=== PATIENT | female | born 1980 | race Caucasian/White ===

== ENCOUNTER → 2024-12-26 11:21 | Outpatient (CLI) | payer OTHER, SELFPAY ==
[2024-12-26 12:42] LABS: Add Manual Diff / Slide Review NO; Basophils Absolute Auto 0 /uL (0-100); Basophils Percent Auto 0.5 % (0-2); Eosinophils Absolute Auto 100 /uL (0-450); Hematocrit 43.1 % (36-46); Hemoglobin 14.6 g/dL (12.0-16.0); Lymphocytes Absolute Auto 900 /uL (1100-4500); Lymphocytes Percent Auto 14.4 % (25-40); Mean Corpuscular HGB Conc 33.9 % (30-36); Mean Corpuscular Hemoglobin 33.5 PG (26-34); Monocytes Absolute Auto 300 /uL (0-900); Monocytes Percent Auto 5.2 % (3-14); Neutrophils Absolute Auto 5100 /uL (1500-7000); Neutrophils Percent Auto 78.9 % (50-75); Platelet Count 238 X10^3/uL (150-400); Red Blood Cell Count 4.35 X10^6/uL (4.0-5.2); Red Cell Distribution Width 12.8 % (11.6-14.8); White Blood Cell Count 6.5 X10^3/uL (4.5-11.0)
[2024-12-26 12:59] LABS: HEMOLYSIS < 15 (0-50); Iron 72 ug/dL (37-170)
[2024-12-26 13:11] LABS: Percent Iron Saturation 24 % (15-50); Total Iron Binding Capacity 301 ug/dL (265-497); Transferrin 250 mg/dL (206-381)
[2024-12-26 13:15] LABS: Alanine Aminotransferase 29 IU/L (<35); Albumin 4.5 g/dL (3.5-5.0); Albumin Globulin Ratio 1.9 (1.0-2.8); Alkaline Phosphatase 51 U/L (38-126); Aspartate Aminotransferase 31 IU/L (14-36); BUN Creatinine Ratio 14.6 (6-22); Bilirubin Total 0.4 mg/dL (0.2-1.3); Blood Urea Nitrogen 12 mg/dL (7-17); Calcium 9.2 mg/dL (8.4-10.2); Carbon Dioxide 21 mmol/L (22-32); Chloride 107 mmol/L (98-107); Cholesterol 175 mg/dL (140-199); Estimated Glomerular Filt Rate > 60 mL/min (>60); Globulin 2.4 g/dL (1.7-4.1); Glucose 107 mg/dL (70-100); HDL Cholesterol 101 mg/dL (40-60); HEMOLYSIS < 15 (0-50); LDL Cholesterol Calculated 66 mg/dL (<100); Potassium 4.6 mmol/L (3.4-5.1); Sodium 137 mmol/L (137-145); Total Protein 6.9 g/dL (6.3-8.2); Triglycerides 40 mg/dL (35-150)
[2024-12-26 13:31] LABS: TSH w/ Reflex to FT4 0.54 uIU/mL (0.47-4.68)
[2024-12-26 13:49] LABS: Ferritin 25 ng/mL (6-137)
[2024-12-30 12:36] LABS: ANA Screen, IFA Negative (.)
== END ==
PROVIDERS: PCP Family Medicine; Referring Provider Family Medicine; Visit Provider Family Medicine
DX: R53.83 Other fatigue (principal); R68.89 Other general symptoms and signs; T78.40XA Allergy, unspecified, initial encounter; R63.5 Abnormal weight gain; Z13.6 Encounter for screening for cardiovascular disorders
CPT/HCPCS: 36415; 80053; 80061; 82728; 83540; 83550; 84443; 85025; 86038

== ENCOUNTER → 2025-04-24 11:16 | Outpatient (CLI) | payer OTHER, SELFPAY ==
[2025-04-24 12:19] LABS: Add Manual Diff / Slide Review NO; Hematocrit 39.7 % (36-46); Hemoglobin 13.7 g/dL (12.0-16.0); Lymphocytes Absolute Auto 1100 /uL (1100-4500); Mean Corpuscular HGB Conc 34.7 % (30-36); Mean Corpuscular Hemoglobin 34.1 PG (26-34); Mean Corpuscular Volume 98.5 fL (80-100); Platelet Count 246 X10^3/uL (150-400)
[2025-04-24 12:51] LABS: HEMOLYSIS < 15 (0-50); Iron 67 ug/dL (37-170)
[2025-04-24 13:02] LABS: Percent Iron Saturation 23 % (15-50); Total Iron Binding Capacity 295 ug/dL (265-497); Transferrin 248 mg/dL (206-381)
[2025-04-24 13:21] LABS: Ferritin 28 ng/mL (6-137)
[2025-04-24 13:55] LABS: Folate 3.7 ng/mL (2.76-20.0); Vitamin B12 561 pg/mL (239-931)
== END ==
LOC: LAB 11:17
PROVIDERS: PCP Family Medicine; Referring Provider Family Medicine; Visit Provider Family Medicine
DX: F90.9 Attention-deficit hyperactivity disorder, unspecified type (principal); N92.0 Excessive and frequent menstruation with regular cycle; N94.6 Dysmenorrhea, unspecified; R63.5 Abnormal weight gain; R53.83 Other fatigue; R68.89 Other general symptoms and signs
CPT/HCPCS: 36415; 82607; 82728; 82746; 83540; 83550; 85025

== ENCOUNTER → 2025-05-08 08:08 | Outpatient (CLI) | payer OTHER, SELFPAY ==
--- NOTE | 2025-05-08 08:08 | DI.ECHO.S_ITS ---
[place] [facility] : : [address] : : [place] : : [id number] : : Phone: [phone] Echocardiogram Report + + :Name: CANDACE NEGRON Study Date: 05/08/2025 Height: 63 in : :[facility] ReadingLocation: Weight: 155 lb : : Gender: Female BSA: 1.7 m2 : :: 1980 Age: 44 yrs BP: 127/104 mmHg: :Reason For Study: CHEST DISCOMFORT : :Ordering Physician: LISA, : :JOSUÉ Hartman Performed By: Jeff Martinez : :Referring: JOSUÉ GONZALEZ : + + Interpretation Summary Normal biventricular size and systolic function. LVEF is 60 to 65%. Normal atrial sizes. No significant valvular pathology is noted. Ascending aorta measures normal size. RA pressure at 3 mmHg. Other findings as below. Procedure: A two-dimensional transthoracic echocardiogram with color flow and Doppler was performed. The study quality was technically good. There is no prior echocardiogram noted for this patient. The patient was in normal sinus rhythm during the exam. Left Ventricle: The left ventricle is normal in size. There is normal left ventricular wall thickness. There is no ventricular septal defect visualized. The ejection fraction is estimated to be 60-65%. There are no focal wall motion abnormalities. Diastolic parameters suggest probable normal left ventricular diastolic function and normal filling pressures. Right Ventricle: The right ventricle is normal in size and function. Atria: The left atrial size is normal. Right atrial size is normal. There is no Doppler evidence for an interatrial shunt. Mitral Valve: The mitral valve leaflets appear normal. There is no evidence of stenosis, fluttering, or prolapse. There is trace mitral regurgitation. Aortic Valve: The aortic valve is trileaflet. The aortic valve opens well. There is trace aortic regurgitation. Tricuspid Valve: The tricuspid valve leaflets are thin and pliable. No tricuspid regurgitation. Pulmonic Valve: The pulmonic valve leaflets are thin and pliable; valve motion is normal. There is no pulmonic valvular regurgitation. Great Vessels: The aortic root is normal size. The dimensions of the ascending aorta are normal. The pulmonary artery is normal size. The IVC is of normal diameter and collapses greater than 50% with a sniff. This suggests a low right atrial pressure of 3 mm Hg. Pericardium/ Pleura There is no pericardial effusion. There is no pleural effusion. MMode/2D Measurements & Calculations LVIDd: 4.4 cm LVOT diam: 1.8 cm LVIDs: 2.9 cm Ao root diam: 2.7 cm FS: 35.2 % asc Aorta Diam: 2.8 cm EPSS: 0.41 cm Ao Arch Diam (Prox Trans): 1.3 cm IVSd: 0.83 cm LVPWd: 0.83 cm LV amador. diameter/BSA (cm/m^2): 2.5 LV sys. diameter/BSA (cm/m^2): 1.6 LA A2 area: 18.7 cm2 RA long axis: 4.3 cm LA A4 area: 17.0 cm2 RA area: 12.9 cm2 LA length (vol): 4.9 cm RA vol: 32.7 ml LA vol: 54.9 ml RA : 18.9 ml/m2 LA vol index: 31.6 ml/m2 IVC diam: 1.9 cm RVD2 (mid): 3.0 cm TAPSE: 2.7 cm Doppler Measurements & Calculations Ao V2 max: 133.9 cm/sec LVOT Max Chirag: 106.5 cm/sec Ao V2 mean: 92.1 cm/sec LV V1 max P.5 mmHg Ao max P.2 mmHg LV V1 VTI: 24.4 cm Ao mean P.8 mmHg MARIANA(I,D): 2.2 cm2 Ao V2 VTI: 28.8 cm MARIANA(V,D): 2.1 cm2 sev ratio: 0.85 MARIANA indexed to BSA (cm^2/m^2): 1.3 MV E max chirag: 84.4 cm/sec PA V2 max: 90.0 cm/sec MV A max chirag: 65.1 cm/sec PA V2 mean: 67.8 cm/sec MV E/A: 1.3 PA mean P.0 mmHg Med Peak E' Chirag: 10.5 cm/sec PA pr(Accel): 31.0 mmHg E/E' med: 8.0 Lat Peak E' Chirag: 12.7 cm/sec E/E' lat: 6.6 E/e' average: 7.3 MV dec time: 0.18 sec SV(LVOT): 64.4 ml Reading Physician:09:54 AM
== END ==
PROVIDERS: PCP Family Medicine; Referring Provider Family Medicine; Visit Provider Family Medicine
DX: R07.89 Other chest pain (principal); R00.2 Palpitations; R55 Syncope and collapse
CPT/HCPCS: 93306